=== PATIENT | female | born 1950 | race Caucasian/White ===

== ENCOUNTER 2018-09-26 17:04 | Emergency (ER) | payer OTHER, MEDICARE ==
[2018-09-26] MEDS ORDERED: LIDOCAINE 1%/EPINEPHRINE INJ 20 ML VIAL INJ ONE (17:47)
--- NOTE | 2018-09-26 17:49 | ER Document Report ---
ED Medical Screen (RME) - General Chief Complaint: Laceration Stated Complaint: LEG INJURY Time Seen by Provider: 09/26/18 17:42 Primary Care Provider: LESTER LOREDO MD [Primary Care Provider] - Follow up as needed Mode of Arrival: Wheelchair Information source: Patient Notes: Patient was moving a dresser and glass broke. Patient cut her right lower leg on a piece of glass. Patient's tetanus immunization is currently up-to-date. I have greeted and performed a rapid initial assessment of this patient. A comprehensive ED assessment and evaluation of the patient, analysis of test results and completion of the medical decision making process will be conducted by additional ED providers. TRAVEL OUTSIDE OF THE [place] IN LAST 30 DAYS: No - Related Data Allergies/Adverse Reactions: all pain medications Allergy (Uncoded 09/26/18 17:06) Physical Exam - Vital signs Vitals: Temp Pulse Resp BP Pulse Ox 98 F 92 18 131/85 H 93 09/26/18 17:07 09/26/18 17:07 09/26/18 17:07 09/26/18 17:07 09/26/18 17:07 - Skin Skin irregularity: Laceration - 2 cm laceration to anterior aspect of right leg Course - Vital Signs Vital signs: Temp Pulse Resp BP Pulse Ox 98 F 92 18 131/85 H 93 09/26/18 17:07 09/26/18 17:07 09/26/18 17:07 09/26/18 17:07 09/26/18 17:07 Doctor's Discharge - Discharge Referrals: LESTER LOREDO MD [Primary Care Provider] - Follow up as needed
--- NOTE | 2018-09-26 18:20 | RADIOLOGY REPORT (SQ) ---
EXAM DESCRIPTION: TIBIA FIBULA RIGHT COMPLETED DATE/TIME: 09/26/2018 6:00 pm REASON FOR STUDY: lac, ?FB COMPARISON: None. NUMBER OF VIEWS: Two views. TECHNIQUE: Two radiographic images acquired of the right tibia and fibula to include the knee and an kle in at least one projection. LIMITATIONS: None. FINDINGS: MINERALIZATION: Normal. BONES: No acute fracture or dislocation. No worrisome bone lesions. SOFT TISSUES: No radiopaque foreign body. OTHER: No other significant finding. IMPRESSION: No fracture or radiopaque foreign body. TECHNICAL DOCUMENTATION: JOB ID: [id number] [id number]- All Rights Reserved Reading location - IP/workstation name: [email or web address]
--- NOTE | 2018-09-26 20:05 | ER Document Report ---
ED General - General Chief Complaint: Laceration Stated Complaint: LEG INJURY Time Seen by Provider: 09/26/18 17:42 Primary Care Provider: JANETTE SHAFER MD [ACTIVE STAFF] - Follow up in 1 week (or your primary care. ) Mode of Arrival: Wheelchair Notes: Patient is a 67-year-old female that presents to the emergency department for chief complaint of right leg laceration. Patient reports that this happened around 430 this afternoon, she was moving a piece of glass furniture, and excellently cut her right leg, she denies being on any blood thinners, she states she is up-to-date with her tetanus. She rates her pain as a 1 out of 10 at this time describes it as a slight sharp sensation at the area of her cat. She denies any other injuries, denies falling or hitting her head. No other complaints at this time. Past Medical History: Denies chronic medical conditions Past Surgical History: Cardiac surgery, for patent foramen ovale Social History: Denies tobacco, alcohol or drug use. Family History: Reviewed and noncontributory for presenting illness Allergies: Reviewed, see documented allergy list. REVIEW OF SYSTEMS: Other than noted above, the 12 point review of systems was reviewed with the patient and were negative, all pertinent findings are included in the HPI. PHYSICAL EXAMINATION: Vital signs reviewed, nursing noted reviewed. GENERAL: Well-appearing, well-nourished and in no acute distress. HEAD: Atraumatic, normocephalic. EYES: Eyes appear normal, extraocular movements intact, sclera anicteric, conjunctiva are normal. ENT: nares patent, oropharynx clear without exudates. Moist mucous membranes. NECK: Normal range of motion, supple without lymphadenopathy LUNGS: Breath sounds clear to auscultation bilaterally and equal. No wheezes rales or rhonchi. HEART: Regular rate and rhythm without murmurs ABDOMEN: Soft, nontender, normoactive bowel sounds. No rebound, guarding, or rigidity. No masses appreciated. EXTREMITIES: There is a 3 cm laceration noted to the mid right thurman, slight oozing of blood, no pulsatile bleeding, does not appear to be contaminated, no foreign body noted, there is mild ecchymosis in the surrounding area, no other injuries or lacerations noted. The rest the patient's extremity exam is grossly unremarkable., Good range of motion, and nontender. NEUROLOGICAL: No focal neurological deficits. Moves all extremities spontaneously Motor and sensory grossly intact on exam. PSYCH: Normal mood, normal affect. SKIN: Warm, Dry, normal turgor, TRAVEL OUTSIDE OF THE [place] IN LAST 30 DAYS: No - Related Data Allergies/Adverse Reactions: all pain medications Allergy (Uncoded 09/26/18 17:06) Past Medical History - General Information source: Patient - Social History Smoking Status: Never Smoker Family History: Reviewed & Not Pertinent Physical Exam - Vital signs Vitals: Temp Pulse Resp BP Pulse Ox 98 F 92 18 131/85 H 93 09/26/18 17:07 09/26/18 17:07 09/26/18 17:07 09/26/18 17:07 09/26/18 17:07 Course - Re-evaluation Re-evalutation: Patient seen and examined vital signs reviewed. Patient was evaluated and treated as appropriate for the patient's presenting symptoms and complaint, with consideration of any critical or life threatening conditions that may be associated with their obtained history and exam as noted above. Patient was treated with laceration repair as described and patient tolerated well The patient was re-evaluated and was stable, good approximation of the wound, x- ray was negative for noticeable foreign body, nor was there on clinical exam. Evaluation was most consistent with right leg laceration, patient advised to return in 8 to 10 days to have her sutures removed. Plan of care was discussed with the patient at this point, after careful consideration I feel that that patient can be discharged from the emergency de partment, the patient was educated treatments and reasons to return to the emergency department based on their presumed diagnosis as noted above, they were advised to followup with a primary care physician in 2-3 days. Patient was agreeable to plan of care. *Note is created using voice recognition software and may contain spelling, syntax or grammatical errors. Tibia/Fibula X-Ray 09/26/18 17:47 IMPRESSION: No fracture or radiopaque foreign body. - Vital Signs Vital signs: Temp Pulse Resp BP Pulse Ox 97.8 F 94 18 114/58 L 94 09/26/18 20:27 09/26/18 20:27 09/26/18 20:27 09/26/18 20:27 09/26/18 20:27 Procedures - Laceration/Wound Repair Right Lower Leg Wound length (cm): 3 Wound's Depth, Shape: Other - into subcutaneous tissues Laceration pre-procedure: Sterile PPE donned, Sterile drapes applied, Shur-Clens applied Anesthetic type: 1% Lidocaine w/epi Volume Anesthetic (mLs): 3 Wound explored: Clean Irrigated w/ Saline (mLs): 200 Wound Debrided: Minimal Wound Repaired With: Sutures Suture Size/Type: 4:0, Nylon Number of Sutures: 6 Layer Closure?: No Complications: No Discharge - Discharge Clinical Impression: Leg laceration Qualifiers: Encounter type: initial encounter Laterality: right Qualified Code(s): S81.811A - Laceration without foreign body, right lower leg, initial encounter Condition: Stable Disposition: HOME, SELF-CARE Instructions: Laceration Care ([facility]) Additional Instructions: Please follow-up with the emergency department in 8 to 10 days to have your sutures removed, you can also go to your primary care to have this done, monitor for signs of infection such as pus drainage, or streaking redness up your leg, keep the wound clean and dry, you may wash with soap and water and pat dry but do not scrub the area. Referrals: JANETTE SHAFER MD [ACTIVE STAFF] - Follow up in 1 week (or your primary care. )
[2018-09-26 20:28] VITALS: BP 114/58
== END 2018-09-26 20:31 | disposition home or self-care (01) ==
LOC: ER 17:04
DX: S81.811A Laceration without foreign body, right lower leg, initial encounter (principal); W26.8XXA Contact with other sharp object(s), not elsewhere classified, initial encounter
CPT/HCPCS: 99283; 73590; 12002; J3490